=== PATIENT | female | born 1995 | race African-American/Black ===

== ENCOUNTER 2022-04-18 10:15 | Emergency (ER) | payer SELFPAY ==
[2022-04-18 10:30] VITALS: BP 110/75; PULSE 74; RESP 16; TEMP 36.4; O2SAT 100
--- NOTE | 2022-04-18 10:43 | ED.SKABFB ---
HPI - Skin/Abscess/Foreign Bdy General Chief complaint: Skin/Abscess/Foreign Body Stated complaint: insect bite Time Seen by Provider: 04/18/22 10:43 Source: patient Mode of arrival: ambulatory Limitations: no limitations History of Present Illness HPI narrative: 27 yo F presents with insect sting to right ankle for 3 days. Report itchy, tender and swollen. States yesterday was red and warm. Redness improved today and warmth resolved. Is still concerned she may have infection due to swelling and pain. ROM intact. All systems reviewed and negative except as noted above. Related Data Home Medications Medication Instructions Recorded Confirmed lisdexamfetamine 40 mg capsule 1 cap PO DAILY 04/18/22 04/18/22 (Vyvanse) Allergies Allergy/AdvReac Type Severity Reaction Status Date / Time No Known Allergies Allergy Verified 04/18/22 10:46 Review of Systems Review of Systems: CONSTITUTIONAL: Denies fever, chills, or sweats. EYES: Denies visual changes, redness, or discharge. ENT: Denies rhinorrhea, congestion, sore throat, or otalgia. CARDIOVASCULAR: Denies chest pain, palpitations, or edema. RESPIRATORY: Denies cough or dyspnea. GASTROINTESTINAL: Denies abdominal pain, nausea, vomiting, or diarrhea. GENITOURINARY: Denies dysuria or hematuria. SKIN: Denies rash or itching. Reports painful insect sting to R ankle. MUSCULOSKELETAL: Denies back pain, joint pain, or myalgia. NEUROLOGIC: Denies headache, numbness, or weakness. PSYCHIATRIC: Denies anxiety or depression. All other systems reviewed are negative, except as documented in HPI. PMFSH Comments At time of signature, agree with nursing past medical, surgical, social and family history. There is no relevant family history pertinent to the presenting complaint. Exam Narrative: GENERAL: This is a well-nourished, well-developed patient, in no apparent distress. HEAD: normocephalic, atraumatic. EYES: PERRL. Sclera clear/white. Vision is grossly intact. EARS: External ears normal NOSE: External nose normal NECK: Neck supple, non-tender without lymphadenopathy, masses or thyromegaly. CARDIOVASCULAR: Regular rate and rhythm without murmurs, gallops, or rubs. RESPIRATORY: Clear to auscultation. Breath sounds equal bilaterally. No wheezes, rales, or rhonchi. SKIN: warm, Dry, intact with no suspicious lesions or rash, good texture and turgor. mild redness to medial aspect R ankle with surrounding bruising. tender on palpation. no warmth. no drainage or fluctuance. mild swelling noted. NEURO: awake, alert, and oriented to person, place and time. There were no obvious focal neurologic abnormalities. EXTREMITIES: No joint tenderness, effusion, or edema noted. Course Course Level of Care: Express Care Visit Vital Signs Vital signs: Vital Signs Temperature 36.4 C L 04/18/22 10:30 Pulse Rate 74 04/18/22 10:30 Respiratory Rate 16 04/18/22 10:30 Blood Pressure 110/75 04/18/22 10:30 Pulse Oximetry 100 04/18/22 10:30 Temperature 36.4 C L 04/18/22 10:30 Pulse Rate 74 04/18/22 10:30 Respiratory Rate 16 04/18/22 10:30 Blood Pressure 110/75 04/18/22 10:30 Pulse Oximetry 100 04/18/22 10:30 Reviewed MDM - Skin/Abscess/Foreign Bdy MDM Narrative Medical decision making narrative: Patient is aware of diagnosis, understands and agrees to treatment plan. Anticipatory guidance given. Patient agrees to follow-up as directed and is aware of reasons to seek care at the emergency department. Portions of this record may have been created with voice recognition software No signs of infection to right ankle from insect sting Discharge Plan Discharge Clinical Impression: Insect bite of right ankle with local reaction Patient Disposition: Home, Self-Care Condition: Stable Instructions: Insect Bite or Sting (ED) Additional Instructions: Take medication as prescribed. Take benadryl or zyrtec for itching. Take ibuprofen as needed f
== END 2022-04-18 10:56 | disposition home or self-care (01) ==
PROVIDERS: Emergency Provider Nurse Practitioner Family
DX: S90.561A Insect bite (nonvenomous), right ankle, initial encounter (principal); W57.XXXA Bitten or stung by nonvenomous insect and other nonvenomous arthropods, initial encounter
CPT/HCPCS: 99203; G0463